=== PATIENT | female | born 1955 | race Caucasian/White ===

== ENCOUNTER 2021-09-27 09:45 | Day surgery (SDC) | payer OTHER ==
[2021-09-23 12:07] VITALS: BMI 37.1
[2021-09-23 13:36] LABS: Mean Corpuscular HGB CONC 32.5 g/dL (32.0-36.0); Mean Corpuscular Hemoglobin 30.7 pg (27.0-33.0); Mean Corpuscular Volume 94.5 fl (81.6-98.3); Mean Platelet Volume 10.6 fl (7.4-10.4); Platelet Count 211 10x3/uL (150-450); Red Blood Cell (RBC) Count 4.56 10x6/uL (3.90-5.03); White Blood Cell (WBC) Count 6.4 10x3/uL (3.5-10.5)
[2021-09-24 00:01] LABS: SARS-CoV-2 PCR by NAA Not Detected (NotDetected)
[2021-09-27] MEDS ORDERED: Famotidine/PF 20 mg/2ml Vial ONE (10:35)
[2021-09-27] MEDS ORDERED: CeleCOXIB 100 MG CAP ONE (10:35)
[2021-09-27] MEDS ORDERED: Lidocaine 1% MPF 2 ML VIAL ONE (10:35)
[2021-09-27] MEDS ORDERED: Gabapentin 300 MG CAP ONE (10:35)
[2021-09-27] MEDS ORDERED: Dexamethasone 4 mg/ml Vial ONE ×2 (11:54→12:19)
[2021-09-27] MEDS ORDERED: Ondansetron PF 4 MG/2 ML Vial ONE (11:54)
[2021-09-27] MEDS ORDERED: Ketorolac Tromethamine 30 MG/ML VIAL ONE (11:54)
[2021-09-27] MEDS ORDERED: PROPOFOL 20 ML ONE (11:54)
[2021-09-27] MEDS ORDERED: Lidocaine 2% PF 5 ML VIAL ONE (11:54)
[2021-09-27] MEDS ORDERED: Fentanyl 100 MCG/2 ML VIAL ONE ×2 (11:54→12:46)
[2021-09-27] MEDS ORDERED: Levofloxacin 500 mg/D5W 100 ml Premix Bag ONE (12:04)
== END 2021-09-27 14:50 | disposition home or self-care (01) ==
LOC: CSHSDC 09:45
PROVIDERS: ATTEND Obstetrics & Gynecology
PROC: 0UB98ZX Excision of Uterus, Via Natural or Artificial Opening Endoscopic, Diagnostic (ICD-10-PCS; principal; 2021-09-27)
DX: N84.0 Polyp of corpus uteri (principal); N95.0 Postmenopausal bleeding; E78.5 Hyperlipidemia, unspecified; I10 Essential (primary) hypertension; Z79.899 Other long term (current) drug therapy; Z88.0 Allergy status to penicillin; Z91.040 Latex allergy status; Z98.51 Tubal ligation status; Z20.822 Contact with and (suspected) exposure to COVID-19
CPT/HCPCS: 58558; 85027; 86850; 86900; 86901; U0003; U0005; 88305; J1100; J1885; J1956; J2001; J2405; J2704; J3010; S0028